=== PATIENT | female | born 1960 | race Caucasian/White ===

== ENCOUNTER → 2017-11-17 | Outpatient (CLI) | payer OTHER | END | disposition home or self-care (01) | LOC: RAH 13:49 | PROVIDERS: ATTEND Family Medicine | DX: R92.8 Other abnormal and inconclusive findings on diagnostic imaging of breast (principal); Z98.82 Breast implant status | CPT/HCPCS: 77066 ==

== ENCOUNTER 2018-07-14 10:56 | Day surgery (SDC) | payer OTHER ==
[2018-07-09 14:45] VITALS: BP 143/81
[~2018-07-14] VITALS: Ht 160 cm; Wt 51.1 kg
[2018-07-14] VITALS (13 sets, daily range): BP systolic 100–120; BP diastolic 48–69
[2018-07-14] MEDS: CEFAZOLIN SODIUM 1 GM VIAL IVP SCH ×2 (06:00→13:01)
[~2018-07-14 10:56] MED LIST: BUPIVACAINE/EPI/PF 0.25% 50 ML VIAL ONE; CELESTONE SOLUSPAN 6 MG/ML 5ML VIAL ONE; DEXAMETHASONE SOD PHOSPHATE 10MG/ML 1ML VIAL ONE; DURAMORPH PF1 MG/ML 10ML AMP IV ONE; FENTANYL CITRATE PF 50 MCG/1 ML 2ML VIAL ONE; FLUT16H NASAL; GLYCOPYRROLATE 1 MG/5 ML SYRINGE ONE; LACTATED RINGERS 1000ML 1,000 ML IV SCH; LIDOCAINE PF 2% 5ML ABBOJECT ONE; LINA290C PO; LORA10TA60 PO; MIDAZOLAM HCL 1 MG/ML 2ML VIAL ONE; NEOSTIGMINE 5MG/5ML SYR IV ONE; ONDANSETRON HCL 4 MG/2 ML VIAL ONE; PROPOFOL 10 MG/ML 20ML VIAL IV ONE; ROCURONIUM 10MG/1ML SYR 10 MG/ML ML ONE
[2018-07-14] MEDS ORDERED: ESTR1TAB17 PO (11:23)
[2018-07-14] MEDS ORDERED: MULT-1192 PO (11:25)
[2018-07-14] MEDS ORDERED: IRBE150T51 PO (11:28)
[2018-07-14] MEDS ORDERED: ZOLP10TA2 PO (11:29)
[2018-07-14] MEDS ORDERED: FENTANYL CITRATE PF 50 MCG/1 ML 2ML VIAL ONE (13:01)
[2018-07-14] MEDS ORDERED: NALOXONE HCL 0.4 MG/1 ML ML ONE (13:19)
[2018-07-14] MEDS ORDERED: MEPERIDINE-PF 25 MG/ML SYG ONE (13:53)
--- NOTE | 2018-07-14 14:30 | NUR ---
post op received pt from PACU, s/p left knee arthroscopy , dressing to left leg dry and intact, neurovascular checks to left foot wnl. vs stable. pt denies any pain or discomforts. spouse at bedside.
--- NOTE | 2018-07-14 15:15 | NUR ---
dc dc instructions given to pt spouse, instructed to f/u with dr. jamaal estevez, patient already has tylenol# 3, meloxicam medications at bedside that where prescribed yesterday. hard copy of Dr. Estevez Knee Arthroscopy aftercare Instructions given to patient/pts spouse, piv removed , site asymtomatic, catheter intact. pt getting dress and then will go home
== END 2018-07-14 15:20 | disposition home or self-care (01) ==
LOC: DAH 10:56
PROVIDERS: ATTEND Orthopaedic Surgery
DX: M23.204 Derangement of unspecified medial meniscus due to old tear or injury, left knee (principal); M94.262 Chondromalacia, left knee; M67.52 Plica syndrome, left knee; M19.90 Unspecified osteoarthritis, unspecified site; Z98.890 Other specified postprocedural states; Z79.899 Other long term (current) drug therapy
CPT/HCPCS: 29881; A4218; A4450; A4649 ×2; A4930; A6223; J0690; J0702; J1100; J2001; J2175; J2250; J2274; J2310; J2405; J2704; J2710; J3010 ×2; J3490 ×2; J7120 ×2

== ENCOUNTER → 2018-09-16 | Outpatient (CLI) | payer OTHER ==
[~2018-09-16] MED LIST changes: -BUPIVACAINE/EPI/PF 0.25% 50 ML VIAL ONE; -CELESTONE SOLUSPAN 6 MG/ML 5ML VIAL ONE; -DEXAMETHASONE SOD PHOSPHATE 10MG/ML 1ML VIAL ONE; -DURAMORPH PF1 MG/ML 10ML AMP IV ONE; +ESTR1TAB17 PO; -FENTANYL CITRATE PF 50 MCG/1 ML 2ML VIAL ONE; -GLYCOPYRROLATE 1 MG/5 ML SYRINGE ONE; +IRBE150T51 PO; -LACTATED RINGERS 1000ML 1,000 ML IV SCH; -LIDOCAINE PF 2% 5ML ABBOJECT ONE; -MIDAZOLAM HCL 1 MG/ML 2ML VIAL ONE; +MULT-1192 PO; -NEOSTIGMINE 5MG/5ML SYR IV ONE; -ONDANSETRON HCL 4 MG/2 ML VIAL ONE; -PROPOFOL 10 MG/ML 20ML VIAL IV ONE; -ROCURONIUM 10MG/1ML SYR 10 MG/ML ML ONE; +ZOLP10TA2 PO
== END | disposition home or self-care (01) ==
LOC: RAH 12:47
PROVIDERS: ATTEND Urology
DX: K59.00 Constipation, unspecified (principal); R30.0 Dysuria
CPT/HCPCS: 74018; 76770

== ENCOUNTER → 2019-03-30 | Outpatient (CLI) | payer OTHER | END | disposition home or self-care (01) | LOC: RAH 13:12 | PROVIDERS: ATTEND Family Medicine | DX: Z12.31 Encounter for screening mammogram for malignant neoplasm of breast (principal) | CPT/HCPCS: 77067 ==

== ENCOUNTER → 2020-05-02 | Outpatient (CLI) | payer OTHER | END | disposition home or self-care (01) | LOC: RAH 11:03 | PROVIDERS: ATTEND Family Medicine | DX: Z12.31 Encounter for screening mammogram for malignant neoplasm of breast (principal); N64.89 Other specified disorders of breast | CPT/HCPCS: 77067 ==

== ENCOUNTER → 2021-07-05 | Outpatient (CLI) | payer OTHER | END | disposition home or self-care (01) | LOC: RAH 11:00 | PROVIDERS: ATTEND Internal Medicine Critical Care Medicine | DX: E04.1 Nontoxic single thyroid nodule (principal) | CPT/HCPCS: 76536 ==

== ENCOUNTER → 2021-07-10 | Outpatient (CLI) | payer OTHER | END | disposition home or self-care (01) | LOC: RAH 10:12 | PROVIDERS: ATTEND Physician Assistant | DX: M43.16 Spondylolisthesis, lumbar region (principal) | CPT/HCPCS: 72110 ==

== ENCOUNTER → 2021-07-19 | Outpatient (CLI) | payer OTHER ==
[~2021-07-19] MED LIST changes: +LIDOCAINE HCL 1% 10 ML VIAL ONE
[2021-07-19 09:51] LABS: PROTHROMBIN TIME 10.9 SEC (9.6-11.6)
[2021-07-19 09:53] LABS: PARTIAL THROMBOPLASTIN TIME 22.5 SEC (26.3-35.5)
== END | disposition home or self-care (01) ==
LOC: RAH 08:57
PROVIDERS: ATTEND Family Medicine
DX: E04.1 Nontoxic single thyroid nodule (principal); D44.0 Neoplasm of uncertain behavior of thyroid gland; Z79.01 Long term (current) use of anticoagulants
CPT/HCPCS: 10005; 36415; 85610; 85730; 88172; 88173; 88177; 88305; J3490; 93306

== ENCOUNTER → 2021-07-19 | Outpatient (CLI) | payer OTHER ==
[~2021-07-19] MED LIST changes: -LIDOCAINE HCL 1% 10 ML VIAL ONE
== END | disposition home or self-care (01) ==
LOC: SHCH 13:25
PROVIDERS: ATTEND Internal Medicine Cardiovascular Disease
DX: I08.3 Combined rheumatic disorders of mitral, aortic and tricuspid valves (principal); Z98.82 Breast implant status
CPT/HCPCS: 93306

== ENCOUNTER → 2021-11-14 | Outpatient (CLI) | payer OTHER | END | disposition home or self-care (01) | LOC: RAH 10:47 | PROVIDERS: ATTEND Physical Medicine & Rehabilitation | DX: M47.816 Spondylosis without myelopathy or radiculopathy, lumbar region (principal); M51.36 Other intervertebral disc degeneration, lumbar region; M43.5X6 Other recurrent vertebral dislocation, lumbar region; M43.16 Spondylolisthesis, lumbar region; M48.07 Spinal stenosis, lumbosacral region | CPT/HCPCS: 72148 ==

== ENCOUNTER → 2022-01-31 | Outpatient (CLI) | payer OTHER | END | disposition home or self-care (01) | LOC: RAH 10:41 | PROVIDERS: ATTEND Otolaryngology | DX: E04.2 Nontoxic multinodular goiter (principal); E04.1 Nontoxic single thyroid nodule | CPT/HCPCS: 76536 ==

== ENCOUNTER → 2022-07-21 | Outpatient (CLI) | payer OTHER | END | disposition home or self-care (01) | LOC: RAH 13:51 | PROVIDERS: ATTEND Family Medicine | DX: R92.2 Inconclusive mammogram (principal); Z98.82 Breast implant status | CPT/HCPCS: 77066 ==

== ENCOUNTER → 2022-07-23 | Outpatient (CLI) | payer OTHER | END | disposition home or self-care (01) | LOC: RAH 13:31 | PROVIDERS: ATTEND Nurse Practitioner | DX: M75.101 Unspecified rotator cuff tear or rupture of right shoulder, not specified as traumatic (principal) | CPT/HCPCS: 73221 ==

== ENCOUNTER → 2022-08-04 | Outpatient (CLI) | payer OTHER | END | disposition home or self-care (01) | LOC: RAH 09:24 | PROVIDERS: ATTEND Otolaryngology | DX: E04.2 Nontoxic multinodular goiter (principal) | CPT/HCPCS: 76536 ==

== ENCOUNTER → 2022-08-13 | Outpatient (CLI) | payer OTHER ==
[~2022-08-13] MED LIST changes: +LIDOCAINE HCL 1% 20 ML VIAL ONE
[2022-08-13 09:29] LABS: INR 0.93 (0.85-1.15); PROTHROMBIN TIME 10.2 SEC (9.6-11.6)
[2022-08-13 09:30] LABS: PARTIAL THROMBOPLASTIN TIME 26.3 SEC (26.3-35.5)
== END | disposition home or self-care (01) ==
LOC: RAH 09:05
PROVIDERS: ATTEND Otolaryngology
DX: E04.1 Nontoxic single thyroid nodule (principal); Z79.01 Long term (current) use of anticoagulants
CPT/HCPCS: 10005; 36415; 76942; 85610; 85730; 88173; 88305

== ENCOUNTER 2022-11-07 16:30 | Inpatient (IN) | payer OTHER ==
[~2022-11-07] VITALS: Ht 160 cm; Wt 46.6 kg
[2022-11-07 10:36] LABS: BASOPHILS % (AUTO) 1.2 % (0.0-5.0); HEMATOCRIT 36.2 % (36-48); LYMPHOCYTES % (AUTO) 30.7 % (21.0-51.0); MEAN CORPUSCULAR HEMOGLOBIN 31.1 pg (27.0-33.0); MEAN CORPUSCULAR HGB CONC 33.4 g/dL (32.0-36.0); MEAN CORPUSCULAR VOLUME 93.1 fL (79-99); MONOCYTES % (AUTO) 10.1 % (3.0-13.0); NEUTROPHILS % (AUTO) 56.6 % (40.0-77.0); PLATELET COUNT (AUTO) 341 K/uL (130-400); RED BLOOD CELL COUNT(AUTO) 3.89 MIL/uL (4.00-5.50); WHITE BLOOD COUNT (AUTO) 6.8 K/uL (4.8-10.8)
[2022-11-07 10:48] LABS: APPEARANCE,URINE CLEAR (CLEAR); BILIRUBIN,URINE NEGATIVE (NEGATIVE); COLOR,URINE LIGHT-YELLOW (YELLOW); GLUCOSE, URINE (UA) NEGATIVE (NEGATIVE); KETONES,URINE NEGATIVE (NEGATIVE); LEUKOCYTE ESTERASE ,URINE NEGATIVE Leu/uL (NEGATIVE); NITRATE,URINE NEGATIVE (NEGATIVE); OCCULT BLOOD,URINE NEGATIVE (NEGATIVE); PROTEIN,URINE NEGATIVE (NEGATIVE); UROBILINOGEN,URINE 0.2 mg/dL (0.2-1.0)
[2022-11-07 10:49] VITALS: BP 160/82
[2022-11-07 10:50] LABS: INR 0.95 (0.85-1.15); PROTHROMBIN TIME 10.4 SEC (9.6-11.6)
[2022-11-07 10:52] LABS: ALBUMIN 4.3 g/dL (3.5-5.0); CARBON DIOXIDE 35 mmol/L (21-32); CHLORIDE 100 mmol/L (101-111); CREATININE 0.5 mg/dL (0.5-1.5); GLOMERULAR FILTR. RATE CALC 105 mL/min (>90); GLUCOSE,RANDOM 103 mg/dL (70-105); PARTIAL THROMBOPLASTIN TIME 26.5 SEC (26.3-35.5); POTASSIUM 4.3 mmol/L (3.5-5.1); SODIUM SERUM 139 mmol/L (136-145); UREA NITROGEN, BLOOD 5 mg/dL (7-18)
[2022-11-07 11:01] LABS: CRP QUANTITATIVE < 2.00 mg/L (0.00-9.0)
[~2022-11-07 16:30] MED LIST changes: +AMLO-257 PO; +ATOR40TA69 PO; +FLUO20TA29 PO; -IRBE150T51 PO; +LACT10SO5 PO; -LIDOCAINE HCL 1% 20 ML VIAL ONE; -LORA10TA60 PO; +METO-408 PO; +MONT-39 PO; -MULT-1192 PO; -ZOLP10TA2 PO
[2022-11-10] VITALS (25 sets, daily range): BP systolic 96–137; BP diastolic 51–79
[2022-11-10] MEDS ORDERED: LACTATED RINGERS 1000ML 1,000 ML IV ONE (06:18)
[2022-11-10] MEDS: CEFAZOLIN SODIUM 2 GM VIAL ONE ×2 (06:36→07:41)
[2022-11-10] MEDS ORDERED: SUCCINYLCHOLINE CHLORIDE 20 MG/ML 10 ML VIAL ONE (07:09)
[2022-11-10] MEDS ORDERED: LIDOCAINE PF 100MG/5ML (2%) SYRINGE 5ML ONE ×2 (07:09→10:24)
[2022-11-10] MEDS ORDERED: NEOSTIGMINE 5MG/5ML SYR IV ONE (07:10)
[2022-11-10] MEDS ORDERED: PROPOFOL 10 MG/ML 20ML VIAL IV ONE (07:10)
[2022-11-10] MEDS ORDERED: ROCURONIUM 10MG/1ML SYR 10 MG/ML ML ONE (07:10)
[2022-11-10] MEDS ORDERED: ONDANSETRON 4MG INJ ONE (07:10)
[2022-11-10] MEDS ORDERED: GLYCOPYRROLATE 1 MG/5 ML SYRINGE ONE (07:10)
[2022-11-10] MEDS ORDERED: MIDAZOLAM HCL 1 MG/ML 2ML VIAL ONE (07:10)
[2022-11-10] MEDS ORDERED: DEXAMETHASONE SOD PHOSPHATE 10MG/ML 1ML VIAL ONE (07:10)
[2022-11-10] MEDS ORDERED: FENTANYL CITRATE PF 50 MCG/1 ML 2ML VIAL ONE (07:11)
[2022-11-10] MEDS ORDERED: EPHEDRINE SULFATE 50 MG/ML AMPULE ONE (07:35)
[2022-11-10] MEDS ORDERED: PHENYLEPHRINE HCL 10 MG/ML 1ML VIAL IV ONE (08:08)
[2022-11-10] MEDS ORDERED: KETOROLAC 15MG/ML VIAL (15MG/ML) IV PRN (10:30)
[2022-11-10] MEDS ORDERED: CALCIUM CARB 500MG PO PRN (10:30)
[2022-11-10] MEDS ORDERED: CYCLOBENZAPRINE HCL 10 MG TABLET PO PRN (10:30)
[2022-11-10] MEDS ORDERED: ONDANSETRON 4MG INJ IVP PRN (10:30)
[2022-11-10] MEDS ORDERED: FE FUMARATE/FA/MV, MIN COMB#15 1 TAB PO PRN (10:30)
[2022-11-10] MEDS ORDERED: DiphenhydrAMINE HCL 50 MG/ML VIAL IVP PRN (10:30)
[2022-11-10] MEDS ORDERED: POTASSIUM CHLORIDE 20MEQ/100ML 100 ML IV PRN (10:30)
[2022-11-10] MEDS ORDERED: POTASSIUM CHLORIDE 10% ELIXIR 20 MEQ/15 ML UDCUP PO PRN (10:30)
[2022-11-10] MEDS ORDERED: KCL 20 MEQ ERTAB PO PRN (10:30)
[2022-11-10] MEDS ORDERED: ROPIVACAINE 0.5% 5MG/ML 30ML IJ ONE (10:31)
[2022-11-10] MEDS: 0.9%NACL 1000ML 1,000 ML IV SCH ×2 (12:00→20:30)
[2022-11-10] MEDS: CEFAZOLIN SODIUM 1 GM VIAL IVPB SCH ×2 (15:22→22:41)
[2022-11-10] MEDS: GABAPENTIN 100 MG CAPSULE PO SCH ×2 (15:23→20:08)
[2022-11-10] MEDS ORDERED: MONTELUKAST SODIUM 10 MG TAB PO PRN (15:30)
[2022-11-10] MEDS ORDERED: LACTULOSE 20 GM/30 ML UDCUP PO PRN (15:30)
[2022-11-10] MEDS ORDERED: ESTRADIOL 0.5 MG TABLET PO SCH (17:00)
[2022-11-10] MEDS: KETOROLAC 15MG/ML VIAL (15MG/ML) IV SCH (17:48)
[2022-11-10] MEDS: DOCUSATE SODIUM 100 MG CAP PO SCH (20:08)
[2022-11-10] MEDS: TRAMADOL HCL 50 MG TABLET PO PRN (20:14)
[2022-11-10] MEDS ORDERED: ATORVASTATIN 40 MG TABLET PO SCH (21:00)
[2022-11-10] MEDS ORDERED: LINACLOTIDE 290 MCG PO SCH (21:00)
[2022-11-10] MEDS: HYDROCODONE/ACETAMINOPHEN 5/325 MG TAB PO PRN (22:41)
[2022-11-11 00:34] VITALS: BP 114/65
[2022-11-11] MEDS: KETOROLAC 15MG/ML VIAL (15MG/ML) IV SCH (02:30)
[2022-11-11 04:25] VITALS: BP 111/62
[2022-11-11 04:38] LABS: HEMATOCRIT 25.4 % (36-48); MEAN CORPUSCULAR HEMOGLOBIN 31.7 pg (27.0-33.0); MEAN CORPUSCULAR HGB CONC 33.9 g/dL (32.0-36.0); MEAN CORPUSCULAR VOLUME 93.7 fL (79-99); RED BLOOD CELL COUNT(AUTO) 2.71 MIL/uL (4.00-5.50); RED CELL DISTRIBUTION WIDTH 12.2 % (11.0-15.5); WHITE BLOOD COUNT (AUTO) 11.6 K/uL (4.8-10.8)
[2022-11-11 04:56] LABS: CREATININE 0.5 mg/dL (0.5-1.5); POTASSIUM 5.3 mmol/L (3.5-5.1)
[2022-11-11] MEDS: HYDROCODONE/ACETAMINOPHEN 5/325 MG TAB PO PRN (05:49)
[2022-11-11] MEDS: 0.9%NACL 1000ML 1,000 ML IV SCH (06:30)
[2022-11-11] MEDS ORDERED: KAYEXALATE 15GM/60ML PO SCH (08:00)
[2022-11-11 08:07] VITALS: BP 91/54
[2022-11-11] MEDS: GABAPENTIN 100 MG CAPSULE PO SCH ×2 (08:41→15:54)
[2022-11-11] MEDS: DOCUSATE SODIUM 100 MG CAP PO SCH (08:41)
[2022-11-11] MEDS ORDERED: METOPROLOL SUCCINATE 25 MG TAB.SR.24H PO SCH (09:00)
[2022-11-11] MEDS ORDERED: POLYETHYLENE GLYCOL 3350 17 GM POWD.PACK PO SCH (09:00)
[2022-11-11] MEDS ORDERED: FLUOXETINE HCL 20 MG CAPSULE PO SCH (09:00)
[2022-11-11] MEDS ORDERED: ASPIRIN 325MG EC TAB PO SCH (09:00)
[2022-11-11] MEDS ORDERED: FLUTICASONE PROPIONATE 50MCG/SPRAY 16 GM BOTTLE NS SCH (09:00)
[2022-11-11] MEDS ORDERED: AMLODIPINE 5 MG TAB PO SCH (09:00)
[2022-11-11] MEDS: TRAMADOL HCL 50 MG TABLET PO PRN (11:15)
[2022-11-11 11:38] VITALS: BP 111/64
[2022-11-11] MEDS ORDERED: GABA100C PO (11:57)
[2022-11-11] MEDS ORDERED: HYDR-4060 PO (11:57)
[2022-11-11] MEDS ORDERED: ASPI-891 PO (11:57)
[2022-11-11] MEDS ORDERED: CYCL-309 PO (11:57)
[2022-11-13] MEDS ORDERED: BISACODYL 10 MG SUPP.RECT RC PRN (10:30)
== END 2022-11-11 16:15 | disposition home or self-care (01) | DRG 483 ==
LOC: DAHIP 11-10 05:58 → 4CH 11-10 11:40
PROVIDERS: ADMIT Student in an Organized Health Care Education/Training Program; ATTEND Student in an Organized Health Care Education/Training Program
PROC: 0RRJ00Z Replacement of Right Shoulder Joint with Reverse Ball and Socket Synthetic Substitute, Open Approach (ICD-10-PCS; principal; 2022-11-10 08:01)
DX: M75.101 Unspecified rotator cuff tear or rupture of right shoulder, not specified as traumatic (principal); D62 Acute posthemorrhagic anemia; E87.5 Hyperkalemia
CPT/HCPCS: 36415; 73020; 73030; 80048; 81003; 82040; 84132; 84134; 85025; 85027; 85610; 85730; 86140; 87088; 87426; 87641; 97039; G0378; J0330; J0690; J1100; J1885; J2001; J2250; J2370; J2405; J2704; J2710; J2795; J3010; J3490; J7120

== ENCOUNTER → 2023-07-22 | Outpatient (CLI) | payer OTHER ==
[~2023-07-22] MED LIST changes: +ASPI-891 PO; +CYCL-309 PO; +GABA100C PO; +HYDR-4060 PO
== END | disposition home or self-care (01) ==
LOC: RAH 09:35
PROVIDERS: ATTEND Family Medicine
DX: Z98.82 Breast implant status (principal); R92.333 Mammographic heterogeneous density, bilateral breasts
CPT/HCPCS: 77066

== ENCOUNTER → 2024-07-25 | Outpatient (CLI) | payer MEDICARE ==
[~2024-07-25] MED LIST changes: +LACT-441 PO; -LACT10SO5 PO
--- NOTE | 2024-07-25 12:12 | HMCIMG ---
DIAGNOSTIC MAMMOGRAM HISTORY: BREAST IMPLANT OF STATUS COMPARISON: 07/22/2023 TECHNIQUE: Bilateral digital diagnostic mammogram was performed. Implant displacement views also were obtained. FINDINGS: Parenchymal density: The breasts are heterogeneously dense, which may obscure small masses. There is no evidence of a dominant mass, or suspicious microcalcification. There is no evidence of nipple retraction or skin thickening. There are implants in place without evidence of rupture. IMPRESSION: 1. Stable mammogram. The patient was entered into a reminder system with a target due date for their next mammogram. BI-RADS CATEGORY 2: BENIGN FINDINGS Recommend monthly self breast exam as well as annual clinical examination. A negative x-ray should not delay biopsy if a dominant or clinically suspicious mass is present, since 8-10% of cancers are not identified by mammography. Dense breasts particularly, may obscure an underlying neoplasm. Some of these may be detected clinically and therefore, clinical examination is an essential part of breast evaluation.
== END | disposition home or self-care (01) ==
LOC: RAH 11:14
PROVIDERS: ATTEND Family Medicine
DX: R92.333 Mammographic heterogeneous density, bilateral breasts (principal); Z98.82 Breast implant status
CPT/HCPCS: 77066